=== PATIENT | male | born 1960 | race Caucasian/White ===

== ENCOUNTER 2018-10-22 07:37 | Day surgery (SDC) | payer OTHER ==
[2018-10-16 09:42] VITALS: BMI 25.9
[2018-10-22] MEDS ORDERED: LIDOCAINE HCL/PF 2% SDV 5ML VIAL ONE (09:11)
[2018-10-22] MEDS ORDERED: PROPOFOL 20 ML ONE (09:12)
[2018-10-22] MEDS ORDERED: GLUCAGON 1 MG KIT ONE (09:32)
[2018-10-22 09:59] VITALS: PULSE 56; TEMP 97.3
[2018-10-22 10:22] VITALS: BP 131/84
== END 2018-10-22 10:24 | disposition home or self-care (01) ==
LOC: FASU-ENDO 07:37
PROVIDERS: ATTEND Internal Medicine Gastroenterology
PROC: 0DJD8ZZ Inspection of Lower Intestinal Tract, Via Natural or Artificial Opening Endoscopic (ICD-10-PCS; principal; 2018-10-22 09:15)
DX: Z86.010 Personal history of colon polyps (principal); K57.30 Diverticulosis of large intestine without perforation or abscess without bleeding